=== PATIENT | male | born 1955 | race Caucasian/White ===

== ENCOUNTER 2020-11-29 13:46 | Emergency (ER) | payer MEDICAID ==
[~2020-11-29] VITALS: Ht 188 cm; Wt 85.0 kg
[2020-11-29] MEDS ORDERED: LORazepam 1MG TABLET PO ONE (14:00)
[2020-11-29] MEDS ORDERED: LORazepam 1MG TABLET ONE (14:03)
--- NOTE | 2020-11-29 14:11 | NUR ---
PT MEDICATED PER ERP ORDER. PT COOPERATIVE WITH CARE. SOCIAL WELFARE ADMINISTRATOR AWARE OF PT COMPLAINT, DISCHARGE FROM [facility] TODAY.
--- NOTE | 2020-11-29 14:28 | NUR ---
OLINDA VICTORIA IN TO SEE PT.
[2020-11-29 14:41] LABS: BASOPHILS % (AUTO) 0 % (0-1); EOSINOPHILS % (AUTO) 5 % (1-7); LYMPHOCYTES % (AUTO) 15 % (22-44); MEAN CORPUSCULAR HEMOGLOBIN 29.7 pg (27.5-34.5); MEAN CORPUSCULAR HGB CONC 32.8 g/dL (33.2-36.2); MEAN PLATELET VOLUME 7.8 fL (7.4-10.4); MONOCYTES % (AUTO) 11 % (2-9); NEUTROPHILS % (AUTO) 69 % (42-75); PLATELET COUNT 183 x10^3/uL (130-400); RED BLOOD COUNT 4.44 x10^6/uL (4.38-5.82); RED CELL DISTRIBUTION WIDTH 14.4 % (9.4-14.8)
[2020-11-29 14:48] LABS: ALANINE AMINOTRANSFERASE 31 U/L (12-78); ANION GAP 3 mmol/L (5-15); CALCIUM 8.4 mg/dL (8.5-10.1); CHLORIDE 110 mmol/L (98-107); CREATININE 0.52 mg/dL (0.7-1.3)
[2020-11-29 14:50] LABS: ALKALINE PHOSPHATASE 95 U/L (45-117); BILIRUBIN,TOTAL 0.3 mg/dL (0.2-1.0); TOTAL PROTEIN 6.7 g/dL (6.4-8.2)
--- NOTE | 2020-11-29 14:55 | NUR ---
REPORT FROM HUONG PEREZ
--- NOTE | 2020-11-29 14:59 | NUR ---
ODILIA MAYES PROVIDED. REPORT TO AUDREY PEREZ.
[2020-11-29] MEDS ORDERED: QUETIAPINE 25MG TABLET ONE (15:11)
[2020-11-29] MEDS ORDERED: BENZTROPINE 1 MG TABLET ONE (15:11)
--- NOTE | 2020-11-29 15:15 | NUR ---
100% OF MEAL EATEN.
[2020-11-29] MEDS ORDERED: BENZTROPINE 1 MG TABLET PO ONE (15:30)
[2020-11-29] MEDS ORDERED: QUETIAPINE 25MG TABLET PO ONE (15:30)
[2020-11-29 15:54] VITALS: BP 153/83
--- NOTE | 2020-11-29 15:54 | NUR ---
PT REPORTS FEELING BETTER AFTER MEDICATION ADMIN. VERBALIZES UNDERSTANDING OF DC POC AND DC INSTRUCTIONS AND FOLLOW APPOITMENT MADE WITH PREVIOUS FACILITY. X2 APPOITMENTS HIGHLIGHTED FOR PT. PT GIVEN TAXI VOUCHER BUT PT REFUSING VOUCHER, STATING "I LIKE TO WALK FOR MY EXERCISE AND I WANT TO SEE A FRIEND". PT WITH STEADY GAIT AND WALKED TO DC DESK.
== END 2020-11-29 15:58 | disposition home or self-care (01) ==
LOC: ED 15:10
DX: F41.1 Generalized anxiety disorder (principal); R63.4 Abnormal weight loss; R51.9 Headache, unspecified; Z68.21 Body mass index [BMI] 21.0-21.9, adult
CPT/HCPCS: 36415; 71045; 80053; 83605; 85025; 99284